=== PATIENT | female | born 1940 | race Caucasian/White ===

== ENCOUNTER 2016-10-20 15:28 | Observation (INO) ==
[2016-10-20] MEDS ORDERED: ONDANSETRON 4 MG/2 ML VIAL IV PRN (17:09)
[2016-10-20] MEDS ORDERED: ACETAMINOPHEN 325 MG TABLET PO PRN (17:09)
[2016-10-20] MEDS: SODIUM CHLORIDE 0.9% 1,000 ML IV SCH (17:43)
[2016-10-20 18:15] LABS: Basophils % 0.3 % (0.0-0.8); Eosinophils # 0.1 10*3/uL (0.0-0.87); Eosinophils % 0.6 % (0.00-10.9); Hematocrit 44.7 VOL% (35.7-47.0); Hemoglobin 14.7 GM/DL (12.0-16.0); Immature Granulocytes % 0.5 %; Immature Granulocytes Absolute 0.05 #; Lymphocytes # 1.2 10*3/uL (1.4-4.0); Mean Corpuscular HGB Conc 32.9 GM/DL (32-36); Mean Corpuscular Hemoglobin 29 PG (27-34); Mean Corpuscular Volume 88.7 FL (87-102); Mean Platelet Volume 11.8 FL (9.6-12.0); Monocytes # 1.4 10*3/uL (0.11-0.8); Monocytes % 12.4 % (1.7-12.7); Neutrophils # 8.3 10*3/uL (1.4-7.4); Neutrophils % 75.2 % (38.7-73.9); Platelet Count 184 T/CUMM (130-400); Red Blood Count 5.04 MC/CUMM (3.8-5.5); Red Cell Distribution Width 14.2 % (9.3-17.3)
[2016-10-20 18:32] LABS: Calcium 9.8 MG/DL (8.5-10.1); Osmolality,Calculated 273.2 MOS/KG (273-304); Potassium 3.7 MMOL/L (3.5-5.1)
--- NOTE | 2016-10-20 18:47 | Hospitalist History & Physical ---
<Fabiano Osuna - Last Filed: 10/20/16 18:41> Assessment and Plan - Time spent with patient Time spent with patient: Greater than 30 minutes (1) Gastroenteritis Status: Acute Assessment and plan: Patient has been admitted for observation. We have started IV fluids for rehydration. Antiemetics. we will obtain blood cultures and stool cultures. Patient notes that diarrhea has reduced significantly. Patient will likely be able to go home tomorrow. Current Visit: No (2) Hypertension Status: Acute Assessment and plan: Continue home medications. Current Visit: Yes (3) Hypothyroidism Status: Acute Assessment and plan: Continue home medications. Current Visit: Yes (4) Sleep apnea with hypersomnolence Status: Acute Assessment and plan: Patient's is bringing home CPAP machine for use overnight. Current Visit: Yes History of Present Illness Chief complaint: Gastroenteritis History of present illness: Ms. Diaz is a 75 year old white female with a past medical history significant for hypertension, sleep apnea with hypersomnolence, hypothyroidism who presents to the hospital today as a [place] [facility] was seen as a hospital follow-up and further evaluation of gastroenteritis. Patient was recently seen in the ED on Wednesday and was discharged home from the emergency room as they felt her nausea/vomiting/diarrhea was due to self- limiting gastroenteritis. Patient presented to her PCP today with weakness and continued diarrhea and just not feeling well at which time the nurse practitioner decided to transfer her for direct admission. Upon examination, the patient is noticeably dehydrated but resting comfortably. She states that she has not been feeling well for approximately 1 week with diarrhea after he eating a hamburger that was improperly collected. She reports that she is not had any energy and has not felt like doing her typical day-to-day activities. Upon further evaluation, the patient notes that her diarrhea has reduced significantly. She confirms headache, dyspnea on exertion, diarrhea and decreased appetite. She denies abdominal pain or tenderness. She has been admitted to the hospital medicine service for further evaluation and treatment. Case is been discussed with Dr. Gomes, admitting physician, and the patient will be admitted for observation. She is a full code. Home meds have been reviewed and reconciled. Dr. Humberto Mccormick is her PCP. She was last seen in clinic today by Anh Fernandez NP. Home Medications Medication Instructions Recorded Confirmed Type Aspirin 81 mg PO DAILY 10/20/16 10/20/16 History Benazepril [Lotensin] 20 mg PO DAILY 10/20/16 10/20/16 History Calcium Carbonate [Calcium] 500 mg PO BEDTIME 10/20/16 10/20/16 History Estropipate 0.75 mg PO DAILY 10/20/16 10/20/16 History Fluticasone 50 Mcg Nasal [place] 2 spray BOTH NARES DAILY 10/20/16 10/20/16 History [Flonase Nasal [place]] Levothyroxine Tab [Synthroid Tab] 125 mcg PO DAILY@0700 10/20/16 10/20/16 History Montelukast Sodium 10 mg PO DAILY 10/20/16 10/20/16 History Multivitamin (Centrum) [Centrum 1 tablet PO DAILY 10/20/16 10/20/16 History Tab] Mv,Iron,Mins/Folic Acid/Biotin 1 each PO BEDTIME 10/20/16 10/20/16 History [Hair Formula Tablet] [place]-3S/Dha/Epa/Fish Oil [Fish 1 each PO DAILY 10/20/16 10/20/16 History Oil 1,200 mg Softgel] Omeprazole [Prilosec] 20 mg PO BID 10/20/16 10/20/16 History Pravastatin [Pravachol] 20 mg PO DAILY 10/20/16 10/20/16 History Triamterene/Hydrochlorothiazid 1 each PO DAILY 10/20/16 10/20/16 History [Triamterene-Hctz 37.5-25 mg Tb] amLODIPine [Norvasc] 5 mg PO DAILY 10/20/16 10/20/16 History Allergies Allergy/AdvReac Type Severity Reaction Status Date / Time morphine Allergy Unknown/Unable Verified 10/18/16 09:45 to obtain Penicillins Allergy Unknown/Unable Verified 10/18/16 09:45 to obtain Medical,Surgical,& Family Hx - Medical History Cardio: History of: Hypertension Endocrine: History of: Thyroid Disorder Respiratory: History of: Obstructive Sleep Apnea Gastrointestinal: History of: GERD, Gastrointestinal Cancer (colon ca) - Surgical History Abdominal Surgeries: Surgical HX of: Abdominal Surgery (Colon Surgery for colon cancer(had 6 inches removed of colon)), Colonoscopy, EGD Reproductive Surgeries: Surgical HX of;: Hysterectomy Orthopedic Surgeries: Surgical HX of;: Total Knee Replacement (right knee) - Family History Family History: Reports;: Additional Family History (mother- dementia) Denies;: Family Anesthesia Reaction, Family Cancer, Family Diabetes, Family Heart Disease, Family Hematology, Family Hypertension, Family Psychiatric Problems, Family Stroke - Social History Smoking Status: Never smoker Frequency of Alcohol Use: Rarely Type of Drug Use: None Marital Status: Lives With:: Spouse Functional capacity: independent ambulation 12 point system: reviewed and no additional remarkable complaints except as stated Exam - Constitutional Vitals: Period Temp Pulse Resp BP Sys/Fraga Pulse Ox Last 24 Hr 98.3 F 87 18 150/70 97 General appearance: normal weight, no acute distress - Head Head exam: Present: normal inspection, normocephalic, atraumatic - Eye Eye exam: Present: EOMI Pupils: Present: SHENA - ENT ENT exam: Present: normal exam - Neck Neck exam: Present: normal inspection. Absent: lymphadenopathy, tenderness - Respiratory Respiratory exam: Present: clear to auscultation bilaterally. Absent: rales, rhonchi, wheezes - Cardiovascular Cardiovascular exam: Present: regular rate and rhythm - GI/Abdominal GI/Abdominal exam: Present: normal bowel sounds, soft. Absent: mass, tenderness , rebound - Extremities Exam Extremities exam: Present: normal inspection, normal capillary refill, full ROM. Absent: edema - Neurological Exam Neurological exam: Present: alert, oriented X3, CN II-XII intact, reflexes normal - Psychiatric Psychiatric exam: Present: normal affect, normal mood - Skin Skin exam: Present: normal color, warm, intact Results - Labs CBC & BMP: 10/20/16 17:54 10/20/16 17:54 Lab Results: I have reviewed the past 24 hour labs <Shayna Gomes - Last Filed: 10/20/16 19:18> Assessment and Plan (1) Gastroenteritis Status: Acute Assessment and plan: cipro IV every 12 hours Current Visit: No (2) Hypertension Status: Acute Assessment and plan: hold triam/hctz, cont norvasc and benazepril Current Visit: Yes (3) Hypothyroidism Status: Acute Assessment and plan: cont levothyroxine. Current Visit: Yes History of Present Illness History of present illness: Ms. Diaz is a 75 year old female patient seen and examined. patient denies nausea and vomiting. Still have diarrhea but not sure she can even give me a sample Exam - Constitutional Vitals: Period Temp Pulse Resp BP Sys/Fraga Pulse Ox Last 24 Hr 98.3 F 87 18 150/70 97 - Eye Eye exam: Absent: scleral icterus Pupils: Present: normal accommodation - ENT ENT exam: Present: normal external ear exam - Cardiovascular Cardiovascular exam: Absent: systolic murmur Results - Labs CBC & BMP: 10/20/16 17:54 10/20/16 17:54
--- NOTE | 2016-10-20 20:19 | XRay Report ---
XR KUB Indication: Diarrhea Comparison: Abdominal x-ray dated October 14, 2007 Technique: Frontal views of the abdomen Findings: Nonspecific nonobstructive bowel gas pattern. Visualized osseous and surrounding soft tissue structures demonstrate no acute abnormality. Round opacity projecting over the right iliac crest most likely reflects a garment button outside of patient. IMPRESSION: No acute abnormality demonstrated. PROCEDURE INTERPRETED AT [facility] DEPARTMENT OF RADIOLOGY Final Report Signed by: Dr Mina Lopez
[2016-10-20] MEDS ORDERED: PANTOPRAZOLE 40 MG TABLET PO SCH (21:00)
[2016-10-20] MEDS ORDERED: OMEPRAZOLE 20 MG PO SCH (21:00)
[2016-10-20] MEDS: OMEPRAZOLE 20 MG PO SCH (21:39)
[2016-10-20] MEDS: MULTIVITAMIN (CENTRUM) TABLET PO SCH (21:42)
[2016-10-21 00:57] LABS: Apearance,Urine Slightly Hazy (Clear); Bacteria,Urine Moderate /HPF (Few); Bilirubin,Urine Negative (Negative); Blood, Urine Moderate mg/dL (Negative); Glucose,Urine (UA) Negative (Negative); Ketones,Urine Negative (Negative); Nitrite,Urine Negative (Negative); Protein,Urine Negative; RBC,Urine 1 /HPF (0-4); Squamous Epithelial Cell,Urine Occasional /HPF (0-10); Urine Color Yellow (Yellow); Urine Specific Gravity 1.008 (1.001-1.035); Urine Urobilinogen < 2.0 EU/DL (0.2-1.0); WBC,Urine 1 /HPF (0-6)
[2016-10-21] MEDS: SODIUM CHLORIDE 0.9% 1,000 ML IV SCH ×3 (01:25→16:42)
[2016-10-21 06:51] LABS: Basophils % 0.5 % (0.0-0.8); Eosinophils # 0.2 10*3/uL (0.0-0.87); Eosinophils % 2.3 % (0.00-10.9); Hematocrit 39.5 VOL% (35.7-47.0); Hemoglobin 13.1 GM/DL (12.0-16.0); Immature Granulocytes % 0.5 %; Immature Granulocytes Absolute 0.04 #; Lymphocytes # 1.7 10*3/uL (1.4-4.0); Mean Corpuscular HGB Conc 33.2 GM/DL (32-36); Mean Corpuscular Hemoglobin 29 PG (27-34); Mean Corpuscular Volume 87.2 FL (87-102); Mean Platelet Volume 12.4 FL (9.6-12.0); Monocytes # 1.1 10*3/uL (0.11-0.8); Monocytes % 13.4 % (1.7-12.7); Neutrophils # 5.1 10*3/uL (1.4-7.4); Neutrophils % 62.3 % (38.7-73.9); Platelet Count 160 T/CUMM (130-400); Red Blood Count 4.53 MC/CUMM (3.8-5.5); Red Cell Distribution Width 14.2 % (9.3-17.3); White Blood Count 8.2 T/CUMM (4-12)
[2016-10-21] MEDS: LEVOTHYROXINE 125 MCG PO SCH (06:55)
[2016-10-21 07:17] LABS: Calcium 8.7 MG/DL (8.5-10.1); Osmolality,Calculated 277.7 MOS/KG (273-304); Potassium 3.4 MMOL/L (3.5-5.1)
[2016-10-21] MEDS: OMEPRAZOLE 20 MG PO SCH ×2 (08:09→21:47)
[2016-10-21] MEDS ORDERED: PANTOPRAZOLE 40 MG TABLET PO SCH (09:00)
[2016-10-21] MEDS: MONTELUKAST 10 MG PO SCH (09:19)
[2016-10-21] MEDS: BENAZEPRIL 10 MG PO SCH (09:19)
[2016-10-21] MEDS: AMLODIPINE 5 MG PO SCH (09:19)
[2016-10-21] MEDS: ASPIRIN 81 MG PO SCH (09:19)
[2016-10-21] MEDS: MULTIVITAMIN (CENTRUM) TABLET PO SCH ×2 (09:20→21:47)
[2016-10-21] MEDS: FLUTICASONE 50 MCG NASAL SPRAY 16 GM BOTTLE BOTH NARES SCH (09:20)
[2016-10-21] MEDS: PRAVASTATIN 20 MG PO SCH (09:20)
[2016-10-21] MEDS: OMEGA 3 ACID ETHYL ESTERS 1 GM CAPSULE PO SCH (09:21)
--- NOTE | 2016-10-21 16:53 | Hospitalist Progress Note ---
Assessment and Plan (1) Nausea & vomiting Status: Acute Current Visit: No (2) Gastroenteritis Status: Acute Current Visit: No (3) Hypertension Status: Acute Current Visit: Yes (4) Hypothyroidism Status: Acute Current Visit: Yes Hospitalist: Subjective Interval history: No acute events overnight. Patient reports feeling better. Able to tolerate breakfast, first meal in several days. Exam - Constitutional Vitals: Period Temp Pulse Resp BP Sys/Fraga Pulse Ox Last 24 Hr 97.0 F-99.4 F 54-87 18-20 109-140/52-72 95-98 General appearance: over weight - Head Head exam: Present: normocephalic, atraumatic - Eye Eye exam: Present: EOMI Pupils: Present: SHENA - ENT ENT exam: Present: normal exam - Neck Neck exam: Present: normal inspection - Respiratory Respiratory exam: Present: clear to auscultation bilaterally. Absent: wheezes - Cardiovascular Cardiovascular exam: Present: regular rate and rhythm - GI/Abdominal GI/Abdominal exam: Present: normal bowel sounds, soft. Absent: tenderness, rebound - Extremities Exam Extremities exam: Present: normal inspection - Back Exam Back exam: Present: normal inspection - Neurological Exam Neurological exam: Present: alert - Psychiatric Psychiatric exam: Present: normal affect, normal mood - Skin Skin exam: Present: warm, intact Results - Labs CBC & BMP: 10/21/16 05:18 10/21/16 05:18
[2016-10-22] MEDS: SODIUM CHLORIDE 0.9% 1,000 ML IV SCH ×2 (00:32→10:01)
[2016-10-22 06:12] LABS: Basophils % 0.4 % (0.0-0.8); Eosinophils # 0.3 10*3/uL (0.0-0.87); Eosinophils % 4.7 % (0.00-10.9); Hematocrit 40.3 VOL% (35.7-47.0); Hemoglobin 13.5 GM/DL (12.0-16.0); Immature Granulocytes % 0.6 %; Immature Granulocytes Absolute 0.04 #; Lymphocytes # 1.7 10*3/uL (1.4-4.0); Lymphocytes % 24.6 % (21.3-54.2); Mean Corpuscular HGB Conc 33.5 GM/DL (32-36); Mean Corpuscular Hemoglobin 30 PG (27-34); Mean Platelet Volume 11.5 FL (9.6-12.0); Monocytes # 0.9 10*3/uL (0.11-0.8); Monocytes % 12.4 % (1.7-12.7); Neutrophils % 57.3 % (38.7-73.9); Platelet Count 150 T/CUMM (130-400); Red Blood Count 4.58 MC/CUMM (3.8-5.5); Red Cell Distribution Width 14.2 % (9.3-17.3)
[2016-10-22 06:43] LABS: Band Neutrophils 1 % (0-10); Eosinophils 4 % (0-10); Hypochromasia Slight; Lymphocytes 30 % (20-55); Platelet Estimate Normal; Potassium 3.6 MMOL/L (3.5-5.1); Segmented Neutrophils 53 % (50-85); Total Cells Counted 100
[2016-10-22] MEDS: LEVOTHYROXINE 125 MCG PO SCH (07:02)
--- NOTE | 2016-10-22 09:37 | EKG Report ---
Stationary ECG Study [facility] Test Date: 10/22/2016 9:40:01 AM Pat Name: OLGA AMADOR Department: Room: 531 Gender: F Lining Caser: : 1940 Requested by: All Finnegan Order Number: [id number] Reading MD: CHIOMA SHEPPARD Intervals [place] Rate: 78 P: 81 MT: 208 QRS: 54 QRSD: 88 T: 72 QT: 377 QTc: 410 Interpretive Statements SINUS RHYTHM WITH FREQUENT VENTRICULAR PREMATURE COMPLEXES Electronically Signed On 10-23-16 16:06:31 CDT by CHIOMA SHEPPARD [email or web address]
[2016-10-22] MEDS: BENAZEPRIL 10 MG PO SCH (10:02)
[2016-10-22] MEDS: ASPIRIN 81 MG PO SCH (10:02)
[2016-10-22] MEDS: MONTELUKAST 10 MG PO SCH (10:03)
[2016-10-22] MEDS: AMLODIPINE 5 MG PO SCH (10:03)
[2016-10-22] MEDS: OMEPRAZOLE 20 MG PO SCH (10:03)
[2016-10-22] MEDS: PRAVASTATIN 20 MG PO SCH (10:04)
[2016-10-22] MEDS: OMEGA 3 ACID ETHYL ESTERS 1 GM CAPSULE PO SCH (10:07)
[2016-10-22] MEDS: FLUTICASONE 50 MCG NASAL SPRAY 16 GM BOTTLE BOTH NARES SCH (10:08)
[2016-10-22] MEDS: MULTIVITAMIN (CENTRUM) TABLET PO SCH (10:08)
[2016-10-22 10:36] VITALS: BP 132/62
--- NOTE | 2016-10-22 12:51 | Discharge Summary ---
<Fabiano Osuna - Last Filed: 10/22/16 12:44> Hospital Course - Hospital Course Hospital Course: Ms. Diaz is a 75-year-old female with a past medical history significant for hypertension, sleep apnea with hypersomnolence, hypothyroidism who presented to the hospital on 10/20/2016 as a direct admit from the [facility] clinic where she was seen as a follow-up status post recent ER visit for gastroenteritis. Patient returned to the ED with similar complaints and it was decided that she would be admitted for observation and treatment of his gastroenteritis. She was found to be dehydrated and was started on IV fluids. Stool culture was negative for WBCs, enteric pathogens as well as C. difficile A and B antigens. Blood cultures were also negative. Her hospital course was relatively uncomplicated highlighted by maintenance of her chronic conditions and rehydration. She was able to tolerate a full liquid diet while hospitalized. At this time she has reached maximum benefit from hospitalization and stable for discharge. Has been told the on admission, it may take some time to feel like herself again. She mainly needs rest and rehydration. Patient will be discharged home to self with follow-up with her PCP. Diagnosis - Discharge Diagnosis (1) Gastroenteritis Status: Acute (2) Hypertension Status: Acute (3) Hypothyroidism Status: Acute (4) Sleep apnea with hypersomnolence Status: Acute Discharge Plan - Discharge Data Disposition: Disch To Home/Self Care - Discharge Medications Continue Calcium Carbonate [Calcium] 500 mg PO BEDTIME Multivitamin (Centrum) [Centrum Tab] 1 tablet PO DAILY Benazepril [Lotensin] 20 mg PO DAILY [place]-3S/Dha/Epa/Fish Oil [Fish Oil 1,200 mg Softgel] 1 each PO DAILY Fluticasone 50 Mcg Nasal [place] [Flonase Nasal [place]] 2 spray BOTH NARES DAILY Montelukast Sodium 10 mg PO DAILY Omeprazole [Prilosec] 20 mg PO BID Pravastatin [Pravachol] 20 mg PO DAILY Estropipate 0.75 mg PO DAILY Levothyroxine Tab [Synthroid Tab] 125 mcg PO DAILY@0700 amLODIPine [Norvasc] 5 mg PO DAILY Aspirin 81 mg PO DAILY Triamterene/Hydrochlorothiazid [Triamterene-Hctz 37.5-25 mg Tb] 1 each PO DAILY Mv,Iron,Mins/Folic Acid/Biotin [Hair Formula Tablet] 1 each PO BEDTIME - Follow Up or Referral - Forms/Instructions Exam - Constitutional Vitals: Period Temp Pulse Resp BP Sys/Fraga Pulse Ox Last 24 Hr 97.1 F-98.4 F 49-80 16-21 109-148/57-79 93-97 Discharge Results Procedures and tests throughout hospitalization: Pending Orders 10/20/16 06:58 Stool Culture Stat 10/20/16 18:03 Blood Culture Stat Labs on day of discharge: Labs from last 24 hours 10/22/16 10/22/16 05:58 05:58 WBC 7.0 RBC 4.58 Hgb 13.5 Hct 40.3 MCV 88.0 MCH 30 MCHC 33.5 RDW 14.2 Plt Count 150 MPV 11.5 Neut % (Auto) 57.3 Lymph % (Auto) 24.6 Mobile % (Auto) 12.4 Eos % (Auto) 4.7 Baso % (Auto) 0.4 Neut # (Auto) 4.0 Lymph # (Auto) 1.7 Mobile # (Auto) 0.9 H Eos # (Auto) 0.3 Baso # (Auto) 0.0 Total Counted 100 Immature Gran % 0.6 Nucleated RBC % 0.0 Immature Gran # 0.04 Segmented Neutrophils 53 Band Neutrophils 1 Lymphocytes 30 Monocytes 12 Eosinophils 4 Nucleated RBCs # 0.00 Platelet Estimate Normal Hypochromasia Slight Morphology Comment Sodium 143 Potassium 3.6 Chloride 113 H Carbon Dioxide 25 Anion Gap 8.6 BUN 11 Creatinine 0.80 GFR Calculation 79 BUN/Creatinine Ratio 13.00 Glucose 91 Calculated Osmolality 283.0 Calcium 8.0 L Magnesium 2.0 Preliminary micro results at discharge 10/20/16 06:58 Stool Culture - Preliminary Stool No enteric pathogens at 24 hrs 10/20/16 18:03 Blood Culture - Preliminary Blood No growth at 1 day 10/20/16 18:03 Blood Culture - Preliminary Blood No growth at 1 day DS: Provider Date of admission: 10/20/16 16:01 Primary care physician: Hilario Mccormick MD Attending physician on admission: Lourdes Toussaint MD Discharging clinician: Fabiano COPPOLA Expected date of discharge: 10/22/16 <All Finnegan - Last Filed: 10/22/16 12:57> Hospital Course - Time spent with patient Time with patient DS: Less than 30 minutes (25) Diagnosis - Discharge Diagnosis (1) Nausea & vomiting Status: Resolved (2) Gastroenteritis Status: Resolved (3) Hypertension Status: Chronic (4) Hypothyroidism Status: Chronic Discharge Plan - Discharge Data Condition at Discharge: Stable Discharge Diet: advance to your usual diet Activity: increase activity as tolerated Hygiene: no restrictions Weight Bearing at Discharge: weight bear as tolerated Exam - Constitutional General appearance: over weight - Head Head exam: Present: normocephalic, atraumatic - Eye Eye exam: Present: EOMI Pupils: Present: SHENA - ENT ENT exam: Present: normal exam - Neck Neck exam: Present: normal inspection - Respiratory Respiratory exam: Present: clear to auscultation bilaterally. Absent: rhonchi, wheezes - Cardiovascular Cardiovascular exam: Present: regular rate and rhythm - GI/Abdominal GI/Abdominal exam: Present: normal bowel sounds, soft. Absent: tenderness, rebound - Extremities Exam Extremities exam: Present: normal inspection - Back Exam Back exam: Present: normal inspection - Neurological Exam Neurological exam: Present: alert, oriented X3 - Psychiatric Psychiatric exam: Present: normal affect, normal mood - Skin Skin exam: Present: warm, intact
[2016-10-22] MEDS ORDERED: [UNRECOGNIZED DRUG - OTHER] PO SCH (21:00)
--- NOTE | 2016-10-23 15:36 | Event Note ---
I was notified of a positive blood culture for Salmonella dated 10/18/2016. The patient was admitted to the hospital subsequently on 10/20 and had an uncomplicated hospital course. Her repeat cultures during the hospitalization were negative. She had 1 out of 2 blood cultures collected on 18 October that were positive. One was positive for Salmonella while the other was negative. Nonetheless, the patient was contacted at home. The case was discussed with her and her by phone. She reports continued symptoms of diarrhea and abdominal discomfort. A prescription for ciprofloxacin 500 mg by mouth twice daily for 10 days was sent electronically to her pharmacy Mr. Rucker #3. The patient was advised to contact either the hospitalist office or her primary care physician's office on Wednesday if her symptoms have not improved.
== END 2016-10-22 14:53 | disposition home or self-care (01) ==
LOC: N.5E → SUATTDRO 16:01
PROVIDERS: ADMIT Emergency Medicine; ATTEND Internal Medicine